=== PATIENT | male | born 1965 | race Caucasian/White ===

== ENCOUNTER → 2016-08-21 | Outpatient (CLI) | payer OTHER ==
[~2016-08-21] MED LIST: ASPIRIN81 MG PO; CALCIUM500 MG PO; DEPO-TESTOS200 MG/ML IM; FLONASE 0.05% N16 GM; IPRATROPIUM BRO30 ML; KETOTIFEN FUMARA5 ML OP; LOPRESSOR 25 MG25 MG PO; TOPAMAX50 MG PO; VITAMIN B-121000 MCG PO
== END ==
LOC: RAD 12:35
DX: M54.5 Low back pain (principal); Z14.8 Genetic carrier of other disease; E29.1 Testicular hypofunction; M47.816 Spondylosis without myelopathy or radiculopathy, lumbar region
CPT/HCPCS: 72110

== ENCOUNTER → 2016-09-21 | Outpatient (CLI) | payer OTHER | LOC: RAD 13:13 | DX: M54.2 Cervicalgia (principal); M47.812 Spondylosis without myelopathy or radiculopathy, cervical region | CPT/HCPCS: 72050; 72072 ==

== ENCOUNTER → 2022-02-21 | Outpatient (CLI) | payer MEDICARE, OTHER | LOC: KOH-I 10:30 | DX: R10.13 Epigastric pain (principal); I49.5 Sick sinus syndrome; L30.9 Dermatitis, unspecified; K80.80 Other cholelithiasis without obstruction | CPT/HCPCS: 76705 ==